=== PATIENT | female | born 1945 | race Caucasian/White ===

== ENCOUNTER → 2019-12-04 | Outpatient (CLI) | payer MEDICARE ==
[2019-12-04 08:33] LABS: Basophils # (A) 0.1 k/uL (0-0.2); Basophils % (A) 1 %; Eosinophils # (A) 0.2 k/uL (0-0.7); Eosinophils % (A) 3 %; HCT 37.4 % (34.0-46.0); HGB 12.1 gm/dL (11.4-16.0); Lymphocytes # (A) 1.5 k/uL (1.0-4.8); Lymphocytes % (A) 21 %; MCH 29.8 pg (25.0-35.0); MCHC 32.3 g/dL (31.0-37.0); MCV 92.2 fL (80.0-100.0); Mean Platelet Volume 7.3; Monocytes # (A) 0.3 k/uL (0-1.0); Monocytes % (A) 4 %; Neutrophils # (A) 5.1 k/uL (1.3-7.7); Neutrophils % (A) 71 %; Platelet Count 296 k/uL (150-450); RBC 4.06 m/uL (3.80-5.40); RDW 12.5 % (11.5-15.5); WBC 7.3 k/uL (3.8-10.6)
--- NOTE | 2019-12-04 08:33 | XR ---
EXAMINATION TYPE: XR knee complete bilateral DATE OF EXAM: 12/04/2019 COMPARISON: None HISTORY: Knee pain, right worse than left TECHNIQUE: 3 views bilateral knees FINDINGS: Right knee: There is loss of the medial compartment joint space. Medial tibial plateau and medial fem oral condylar spurring is present. There appears to be preservation of the lateral compartment joint space. No joint effusion is evident. Left knee:There is loss of the medial compartment joint space. Medial tibial plateau and medial femor al condylar spurring is present. There appears to be preservation of the lateral compartment joint sp carly. Small amount of lateral tibial plateau spurring is present. No joint effusion is evident. IMPRESSION: 1. Bilateral moderate medial compartment osteoarthritic degenerative change with loss of the joint s pace.
[2019-12-04 08:48] LABS: Albumin 4.2 g/dL (3.5-5.0); Calcium 9.3 mg/dL (8.4-10.2); Potassium 4.7 mmol/L (3.5-5.1); Total Bilirubin 0.4 mg/dL (0.2-1.3); Total Protein 7.2 g/dL (6.3-8.2)
--- NOTE | 2019-12-04 09:30 | CT ---
EXAMINATION TYPE: CT brain wo con DATE OF EXAM: 12/04/2019 COMPARISON: None INDICATION: Loss of balance DLP: 981.7 mGycm, Automated exposure control for dose reduction was used. CONTRAST: None CT of the brain is performed utilizing 3 mm thick sections through the posterior fossa and 3 mm thick sections through the remaining calvarium. Study is performed within 24 hours of arrival to the hosp [facility]. No abnormal hyperdensity is present to suggest an acute intracranial hemorrhage. No mass lesion is evident. No acute infarcts are evident. Ventricles are normal. Sulci are slightly prominent for the patient age compatible with some mild age -related atrophy. Paranasal sinuses and mastoid air cells within the [id number] are clear. IMPRESSIONS: 1. No acute intracranial process to account for loss of balance.
[2019-12-04 15:53] LABS: Hemoglobin A1C 6.8 % (4.0-6.0)
--- NOTE | 2019-12-06 08:57 | USB ---
Reason for exam: clinical finding. History: Family history of breast cancer in sister at age 72 and breast cancer in sister at age 50. Benign excisional biopsy of the right breast, 1969. Physical Findings: Nurse Summary: all soft, nodular, movable (nurse ts). US Breast LT Left complete breast ultrasound includes all four quadrants, the retroareolar region and axilla. Finding demonstrates a new 0.4 x 0.2 x 0.3cm oval, cystic lesion at 2 o'clcok, a 0.7 x 0.8 x 0.5cm oval, lymph node at 3 o'clcok, present previously and a 0.4 x 0.3 x 0.2cm complex, cystic lesion at 11 o'clcok. These results were verbally communicated with the patient on 12/05/19. ASSESSMENT: Probably benign, BI-RAD 3 RECOMMENDATION: Routine screening mammogram of both breasts in 6 months. Back on schedule. Ultrasound of the left breast in 6 months.
== END | disposition home or self-care (01) ==
LOC: RADCTMAIN 07:41
PROVIDERS: ATTEND Family Medicine
DX: M17.0 Bilateral primary osteoarthritis of knee (principal); M25.862 Other specified joint disorders, left knee; M25.861 Other specified joint disorders, right knee; R26.89 Other abnormalities of gait and mobility; R92.8 Other abnormal and inconclusive findings on diagnostic imaging of breast; N18.3 Chronic kidney disease, stage 3 (moderate); E11.22 Type 2 diabetes mellitus with diabetic chronic kidney disease; I12.9 Hypertensive chronic kidney disease with stage 1 through stage 4 chronic kidney disease, or unspecified chronic kidney disease
CPT/HCPCS: 36415; 70450; 80053; 80061; 82043; 82570; 83036; 85025

== ENCOUNTER → 2020-05-01 | Outpatient (CLI) | payer MEDICARE ==
--- NOTE | 2020-05-01 13:43 | US ---
EXAMINATION TYPE: US kidneys/renal and bladder DATE OF EXAM: 05/01/2020 COMPARISON: NONE CLINICAL HISTORY: N18.3 N18.3 CHR KIDNEY DISEASE. CKD EXAM MEASUREMENTS: Right Kidney: 9.0 x 3.9 x 4.0 cm Left Kidney: 9.1 x 4.1 x 4.2 cm Right Kidney: No hydronephrosis or masses seen Left Kidney: No hydronephrosis or masses seen Bladder: wnl Bilateral Jets seen: No There is no evidence for hydronephrosis at this point in time. No nephrolithiasis is seen. No humberto s are identified. The urinary bladder is anechoic. Bilateral ureteral jets are seen. There is sligh tly increased echogenicity of the renal cortex. IMPRESSION: No hydronephrosis or nephrolithiasis. Correlate for chronic medical renal disease.
[2020-05-01 15:06] LABS: Basophils # (A) 0.1 k/uL (0-0.2); Basophils % (A) 1 %; Eosinophils # (A) 0.3 k/uL (0-0.7); Eosinophils % (A) 4 %; HCT 36.5 % (34.0-46.0); HGB 12.1 gm/dL (11.4-16.0); Lymphocytes # (A) 1.5 k/uL (1.0-4.8); Lymphocytes % (A) 17 %; MCH 30.3 pg (25.0-35.0); MCHC 33.1 g/dL (31.0-37.0); MCV 91.5 fL (80.0-100.0); Mean Platelet Volume 7.4; Monocytes # (A) 0.3 k/uL (0-1.0); Monocytes % (A) 4 %; Neutrophils # (A) 6.2 k/uL (1.3-7.7); Neutrophils % (A) 74 %; Platelet Count 255 k/uL (150-450); RBC 3.99 m/uL (3.80-5.40); RDW 12.5 % (11.5-15.5); WBC 8.4 k/uL (3.8-10.6)
[2020-05-01 15:22] LABS: Albumin 4.4 g/dL (3.5-5.0); Calcium 9.7 mg/dL (8.4-10.2); Potassium 4.7 mmol/L (3.5-5.1); Total Bilirubin 0.6 mg/dL (0.2-1.3)
[2020-05-01 22:08] LABS: Hemoglobin A1C 6.3 % (4.0-6.0)
== END | disposition home or self-care (01) ==
LOC: RADUSWWP 13:11
PROVIDERS: ATTEND Family Medicine
DX: N18.3 Chronic kidney disease, stage 3 (moderate) (principal); E11.22 Type 2 diabetes mellitus with diabetic chronic kidney disease
CPT/HCPCS: 76770; 80053; 83036; 85025

== ENCOUNTER → 2025-01-27 | Outpatient (CLI) | payer MEDICARE ==
[2025-01-27 15:37] LABS: HCT 36.9 % (37.2-46.3); HGB 11.8 g/dL (12.0-15.0); MCH 29.6 pg (27.0-32.0); MCV 92.7 FL (80.0-97.0); Mean Platelet Volume 9.4 FL (9.5-12.2); NRBC Per 100 WBC 0 X 10*3/uL (0.00-0.01); Platelet Count 246 X 10*3/uL (140-440); RBC 3.98 X 10*6/uL (4.10-5.20); RDW 12.7 % (11.5-14.5); WBC 7.41 X 10*3/uL (4.50-10.00)
[2025-01-27 16:07] LABS: Blood Urea Nitrogen 22.9 mg/dL (9.0-27.0); Chloride 106 mmol/L (96-109); Potassium 4.2 mmol/L (3.5-5.5); Sodium 142 mmol/L (135-145)
== END | disposition home or self-care (01) ==
LOC: LABPAT 09:59
PROVIDERS: ATTEND Internal Medicine
DX: Z01.812 Encounter for preprocedural laboratory examination (principal); I35.0 Nonrheumatic aortic (valve) stenosis
CPT/HCPCS: 80051; 82565; 84520; 85027

== ENCOUNTER 2025-02-03 10:29 | Day surgery (SDC) | payer MEDICARE ==
[2025-01-30 13:51] VITALS: BMI 34.3
[~2025-02-03 10:29] MED LIST: ALPRAZolam 0.25 MG TAB PO PRN; HEPARIN SODIUM,PORCINE (1 ML) 2,500 UNIT in SODIUM CHLORIDE 0.9% 250 ML IRRIGATION PRN; HEPARIN SODIUM,PORCINE 10,000 UNIT in SODIUM CHLORIDE 0.9% 1,000 ML IRRIGATION PRN; NITROGLYCERIN SL TABS 0.4 MG TAB SUBLINGUAL PRN
[2025-02-03] MEDS: IV FLUID CONTINUATION 1,000 ML IV ONE ×2 (11:13→12:48)
[2025-02-03] MEDS: ASPIRIN 325 MG TAB PO STA (11:21)
[2025-02-03] MEDS: SODIUM CHLORIDE 0.9% 1,000 ML in EMPTY BAG 1 BAG IV SCH (11:23)
[2025-02-03] MEDS: ALPRAZolam 0.5 MG TAB PO PRN (11:29)
[2025-02-03 11:35] VITALS: RESP 16; TEMP 98.5
[2025-02-03] MEDS: amLODIPine 10 MG TAB PO SCH (11:39)
[2025-02-03] MEDS: hydrALAZINE HCL 50 MG TAB PO SCH (11:52)
[2025-02-03] MEDS: BENZOCAINE SPRAY 1 EACH MM ONE (12:45)
[2025-02-03] MEDS: fentaNYL (PF) 50 MCG/1 ML VIAL IVP ONE (12:46)
[2025-02-03] MEDS: MIDAZOLAM 2 MG/2 ML VIAL IVP ONE (12:46)
--- NOTE | 2025-02-03 13:10 | P.TEE ---
Description of Procedure(s): Procedure performed: Transesophageal Echocardiogram with color flow doppler, pulsed wave doppler and continuous wave doppler, moderate conscious sedation Moderate conscious sedation: Moderate conscious sedation was supplied with direct supervision of myself using Versed and Fentanyl. Complications: none Indications: Aortic stenosis PROCEDURE: After the risks, benefits and alternatives of the above mentioned procedure was explained in detail with the patient, informed consent was obtained. Patient was brought to the lab in a fasting state. Patient was given IV Versed and Fentanyl for sedation. The throat was sprayed with Hurricane to anesthetize the throat. A lubricated Omni probe was then introduced into the esophagus and stomach and multiple views were obtained. 2D echo with color flow doppler, pulsed wave doppler and continuous wave doppler was utilized. Agitated saline bubbles were injected to assess for any intra-atrial shunt. The probe was then removed. Patient tolerated the procedure well. Patient was transferred to the post procedure area in stable and satisfactory condition. FINDINGS: 1. The aortic valve is tricuspid with severe aortic stenosis and aortic valve area 0.8 cm by planimetry, maximum velocity 4.1 m/s, mean gradient 42 mmHg. 2. The mitral valve appears be normal with mild mitral regurgitation. 3. Tricuspid valve appears to be normal. 4. The interatrial septum is intact. No evidence of PFO. 5. Left atrial appendage is free of clot. 6. Left ventricular ejection fraction 55%
[2025-02-03] MEDS: LIDOCAINE 1% INJ 10MG/ML (20 ML MDV) SQ ONE (13:12)
[2025-02-03] MEDS: VERAPAMIL 2.5 MG/ML 2 ML AMP INTRAARTER ONE (13:13)
[2025-02-03] MEDS: HEPARIN SODIUM 1,000 UN/ML (10ML VL) IVP ONE (13:15)
[2025-02-03] MEDS: HEPARIN SODIUM (1,000 UNIT/ML) 1,000 UNIT in SODIUM CHLORIDE 0.9% 1,000 ML IRRIGATION ONE (13:17)
[2025-02-03] MEDS: HEPARIN SODIUM,PORCINE (1 ML) 2,500 UNIT in SODIUM CHLORIDE 0.9% 250 ML IRRIGATION ONE (13:17)
[2025-02-03] MEDS: IOPAMIDOL-370 100ML BTL INJ ONE (13:23)
--- NOTE | 2025-02-03 13:29 | P.CARDCATH ---
Description of Procedure: PROCEDURES PERFORMED: Left heart catheterization, bilateral coronary angiography, ultrasound guided arterial access INDICATION: Aortic stenosis CONSENT:I have discussed the risks, benefits and alternative therapies for the above-mentioned procedure and for both sedation/analgesia as well as necessary blood product administration, if indicated, as they pertain to this patient. The patient has indicated understanding and acceptance of the risks and procedures discussed. PROCEDURE: After the risks, benefits and alternatives of the above mentioned procedure explained in detail with the patient, informed consent was obtained. Patient was taken to the catheterization lab and prepped and draped in usual fashion. Ultrasound guidance was used to assess for arterial access. 1% lidocaine was used to anesthetize the right radial artery. A 6-Serbian sheath was placed in the right radial artery using modified Seldinger technique and ultrasound guidance. Left coronary angiography was performed with a 5-Serbian JL 3.5 catheter and right coronary angiography was performed with a 5-Serbian FR 5 catheter in various views. A 5-Serbian FR 5 catheter was inserted into the left ventricle and pressure measurements were obtained. The right radial sheath was removed and a TR band was placed with hemostasis achieved. The patient froilan ated the procedure well. Patient was transported back to the post catheterization holding area in stable condition. Conscious Sedation: Patient was monitored under the direct supervision of myself for conscious sedation using Versed and fentanyl for a total duration of 10 minutes HEMODYNAMICS: Aorta: 108/72 LV: 156/4, LVEDP 8. Significant htld-en-eoep variability with mean gradient 34 mmHg with pullback SELECTIVE CORONARY ARTERIOGRAPHY: LEFT MAIN: The left main is a large caliber vessel which bifurcates into the LAD and circumflex. There is no significant stenosis. LEFT ANTERIOR DESCENDING CORONARY ARTERY: LAD is a large caliber vessel which wraps around to the apex however some of apex supplied by PDA. There are mild luminal irregularities of the proximal LAD and a mid LAD 40% stenosis. LEFT CIRCUMFLEX CORONARY ARTERY: Left circumflex is a moderate caliber vessel with mild 10 to 20% stenosis. OM 2 is very small caliber approximately 1.0 - 1.5 mm with a 90% stenosis RIGHT CORONARY ARTERY: The right coronary artery is a large caliber vessel which gives off a PDA and PLV branch and is the dominant vessel. There are mild luminal irregularities with a mid PDA 30% stenosis. FINAL IMPRESSION: 1. Mild CAD as described above including 10 to 20% RCA and circumflex stenosis, mid LAD 40%, very small caliber OM 290% stenosis 2. Normal left sided filling pressures 3. Severe aortic stenosis PLAN: 1. Aggressive risk factor modification per most recent ACC/AHA guidelines. 2. OM 2 is very small caliber and treat medically. Consider aortic valve replacement
[2025-02-03 16:25] VITALS: BP 106/55; PULSE 79
== END 2025-02-03 17:02 | disposition home or self-care (01) ==
LOC: CATHCVL 10:29
PROVIDERS: ATTEND Internal Medicine
DX: I35.0 Nonrheumatic aortic (valve) stenosis (principal); I25.10 Atherosclerotic heart disease of native coronary artery without angina pectoris; I10 Essential (primary) hypertension; E78.5 Hyperlipidemia, unspecified
CPT/HCPCS: 93312; 93320; 93325; 93458; J2250; J1644 ×2; J2003; Q9967; J3010